=== PATIENT | male | born 1945 | race Caucasian/White ===

== ENCOUNTER 2022-12-10 06:31 | Day surgery (SDC) | payer MEDICARE, BC ==
[~2022-12-10] VITALS: Ht 175.3 cm; Wt 106.6 kg
[~2022-12-10 06:31] MED LIST: ALBUTEROL SUL0.083 % IN; ALLOPURINOL100 MG PO; ASPIRIN81 MG PO; CETIRIZINE10 MG PO; COLCHICINE0.6 M2 PO; FINASTERIDE5 MG PO; GABAPENTIN100 MG PO; IS-ZC 50 50 MG1 TAB PO; METROGEL1 % EX; MULTI VIT PO; PRAVASTATIN20 MG PO; SYMBICORT 80-4.5MCG IN; TAMSULOSIN HCL0.4 MG PO; VIT D PO; [UNRECOGNIZED DRUG - OTHER] IM
[2022-12-10 08:42] VITALS: BP 135/75
== END 2022-12-10 08:50 | disposition home or self-care (01) ==
LOC: ORM 06:31
PROVIDERS: ATTEND Internal Medicine Gastroenterology
PROC: 0DBK7ZX Excision of Ascending Colon, Via Natural or Artificial Opening, Diagnostic (ICD-10-PCS; principal; 2022-12-10)
PROC: 0DBL7ZX Excision of Transverse Colon, Via Natural or Artificial Opening, Diagnostic (ICD-10-PCS; 2022-12-10)
PROC: 0DBN7ZX Excision of Sigmoid Colon, Via Natural or Artificial Opening, Diagnostic (ICD-10-PCS; 2022-12-10)
PROC: 0DBP7ZX Excision of Rectum, Via Natural or Artificial Opening, Diagnostic (ICD-10-PCS; 2022-12-10)
DX: Z12.11 Encounter for screening for malignant neoplasm of colon (principal); D12.2 Benign neoplasm of ascending colon; D12.5 Benign neoplasm of sigmoid colon; D12.3 Benign neoplasm of transverse colon; K62.1 Rectal polyp; K64.8 Other hemorrhoids; K57.30 Diverticulosis of large intestine without perforation or abscess without bleeding; Z86.010 Personal history of colon polyps